=== PATIENT | male | born 1940 | race Caucasian/White ===

== ENCOUNTER 2018-06-12 05:59 | Day surgery (SDC) | payer BC ==
[2018-06-04 17:09] VITALS: BMI 25.6
[2018-06-12] MEDS ORDERED: oxyCODONE HCL 10 MG SUSTAINED ACTING TABLET PO ONE (06:29)
[2018-06-12] MEDS ORDERED: methylPREDNISolone ACET (DEPO) 40 MG/1 ML VIAL ONE (07:17)
[2018-06-12] MEDS ORDERED: GUM MASTIC/STORAX/MSAL/ALCOHOL 1 DRP DROPSBTL MC ONE (07:17)
[2018-06-12] MEDS ORDERED: THROMBIN (BOVINE) 5,000 UNIT VIAL TP ONE ×2 (07:17→09:53)
[2018-06-12] MEDS ORDERED: LIDOCAINE 1%/EPI 1:100000 (20 ML MULTI DOSE VIAL) ONE (07:17)
[2018-06-12] MEDS ORDERED: DEXAMETHASONE SOD PHOSPHATE/PF 10 MG/ML SDV ONE (07:33)
[2018-06-12] MEDS ORDERED: BUPIVACAINE HCL/PF 0.5% (5MG/ML) 10 ML VIAL ONE (07:33)
[2018-06-12] MEDS ORDERED: BUPIVACAINE HCL/PF 2.5 MG/ML - 30 ML VIAL IJ ONE (07:33)
[2018-06-12] MEDS ORDERED: MIDAZOLAM HCL 2 MG/2 ML SINGLE DOSE VIAL ONE ×3 (07:36→09:01)
[2018-06-12] MEDS ORDERED: ONDANSETRON 4 MG/2 ML VIAL ONE (07:37)
[2018-06-12] MEDS ORDERED: SODIUM CHLORIDE 0.9% P/F 10 ML VIAL IJ ONE (07:37)
[2018-06-12] MEDS ORDERED: ceFAZolin SODIUM 1 GM VIAL ONE (07:37)
[2018-06-12] MEDS ORDERED: LIDOCAINE 1%/EPI 1:100000 (20 ML MULTI DOSE VIAL) INF ONE (09:00)
[2018-06-12] MEDS ORDERED: DEXMEDETOMIDINE HCL 200 MCG/2 ML ML IVPB ONE (09:20)
[2018-06-12] MEDS ORDERED: GELATIN SPONGE,ABSORBABLE 1 GM PACKET TP ONE (09:54)
[2018-06-12] MEDS ORDERED: methylPREDNISolone ACET (DEPO) 40 MG/1 ML VIAL IM ONE (10:00)
--- NOTE | 2018-06-12 10:29 | HP ---
History & Physical Update - History History: No Change - Physical Physical: No Change - Assessment Assessment: No Change - Plan Plan: No Change
--- NOTE | 2018-06-12 10:39 | OP ---
Operative Note - Note: Operative Date: 06/12/18 Pre-Operative Diagnosis: lumbar stenosis Operation: lumbar laminectomy of L2-L3 and L3-L4 Surgeon: Mick Pierson Office Nurse Practitioner: Lolis Maravilla Anesthesiologist/LOW RAW SUGAR CUTTER: Sonja Meyer Anesthesia: General Estimated Blood Loss (mls): 20 Fluid Volume Replaced (mls): 1,000 Operative Report Dictated: Yes
--- NOTE | 2018-06-12 10:43 | SURG ---
Surgery Stockroom Helper Note Stockroom Helper: Lolis Maravilla PA-C Date of Service: 06/12/18 Diagnosis: lumbar stenosis of L2-L3 and L3-L4 Procedure: laminectomy of L2-3 and L3-4 I was present for the entirety of the operative procedure. For further detail, please refer to operative report. Visit type - Case Type Case Type: Scheduled - Emergency Emergency Visit: No - New patient This patient is new to me today: Yes Date on this admission: 06/12/18
[2018-06-12 12:42] VITALS: TEMP 97.6
--- NOTE | 2018-06-12 12:46 | OP ---
DATE OF OPERATION: 06/12/2018 PREOPERATIVE DIAGNOSIS: Spinal stenosis, L2-L3, L3-L4. POSTOPERATIVE DIAGNOSIS: Spinal stenosis, L2-L3, L3-L4. PROCEDURE PERFORMED: Laminectomy, L2-L3, L3-L4. SURGEON: Mick Pierson MD SENIOR BENEFITS ANALYST: ANA Metzger ESTIMATED BLOOD LOSS: 50 mL. INTRAVENOUS FLUIDS: Per Anesthesia. ANESTHESIA: Spinal/ESB block. COMPLICATIONS: There were none. DISPOSITION: Patient brought to the PACU in stable condition. INDICATIONS FOR SURGERY: The patient is a 77-year-old gentleman who has been suffering from pain and weakness in his right leg for many months now. He has gone through an exhaustive course of treatment for this which included medications, physical therapy, as well as injections. Unfortunately, his pain continued to persist despite all this. At this point, risks, benefits, and alternatives were discussed, and the patient consented to surgery. OPERATIVE NOTE: The patient was brought to the operating room by Anesthesia staff. After appropriate patient identification was performed, spinal anesthesia was given and erector spinae block was also given. Patient was able to position himself prone onto the OR table with all areas of bony prominences well padded. At this time, 2 needles were placed into his back to yazmin off the L2 to L4 segment. An x-ray was taken to confirm this was correct. The needle was removed, and 10 mL of lidocaine with epinephrine was injected into his back at this time. His back was prepped and draped in a sterile manner. At this point, a time-out was completed. An incision was made from the top of L2 down to the bottom of L4. Dissection was carried down to the fascia. Fascia was then split open at this time, and appropriate retractors were then placed in. A spinal needle was placed onto the L3 lamina to yazmin off the L3-L4 level. An x-ray was taken to confirm this was correct. The needle was removed, and the interspinous ligament at L3-L4 and L2-L3 was removed. The spinous process of L3 was removed. The lamina of L3 was removed. The segment was removed. A complete decompression was performed, such that by the end of the procedure, the L3 and the L4 nerve roots appeared to be well decompressed. All bleeding was well controlled at this time. Steroids were placed over the nerve root. Floseal was placed over that. The fascia was closed with a No. 1 Vicryl suture. The subcutaneous tissues were closed with 2-0 Vicryl suture. Skin was closed with 3-0 Monocryl suture. Dermabond was applied. Steri-Strips were applied, and sterile dressings applied. Patient was placed supine on the OR bed and brought to the PACU in stable condition. Chance [id number]
[2018-06-12 13:56] VITALS: BP 136/79; PULSE 64
== END 2018-06-12 15:45 | disposition home or self-care (01) ==
LOC: FASU 05:59
PROVIDERS: ATTEND Orthopaedic Surgery Orthopaedic Surgery of the Spine
PROC: 01NB0ZZ Release Lumbar Nerve, Open Approach (ICD-10-PCS; principal; 2018-06-12 08:15)
DX: M48.061 Spinal stenosis, lumbar region without neurogenic claudication (principal)
CPT/HCPCS: 72100-TC-FY; 76000-TC-FY; 94760

== ENCOUNTER 2018-12-15 08:14 | Inpatient (IN) | payer BC, OTHER | END 2018-12-23 15:00 | disposition home or self-care (01) | LOC: JSAMEDAYSX 08:14 → J8W 12-17 21:10 → JICU 20:03 ==